=== PATIENT | female | born 1995 | race Caucasian/White ===

== ENCOUNTER 2023-02-28 15:16 | Emergency (ER) | payer BC ==
[~2023-02-28] VITALS: Ht 167.6 cm; Wt 82.0 kg
[2023-02-28 16:17] VITALS: BP 128/76
== END 2023-02-28 16:23 | disposition home or self-care (01) ==
LOC: ER 15:16
DX: R45.851 Suicidal ideations (principal); Z88.8 Allergy status to other drugs, medicaments and biological substances; Z00.00 Encounter for general adult medical examination without abnormal findings
CPT/HCPCS: 99283